=== PATIENT | male | born 1965 | race Caucasian/White ===

== ENCOUNTER 2019-04-23 17:30 | Emergency (ER) | payer MEDICARE, OTHER ==
[2019-04-23] MEDS ORDERED: HYDROmorphone 1 MG/ML Syringe IVPUSH ONE (18:10)
[2019-04-23] MEDS ORDERED: Ketorolac 30 MG/ML SDV IVPUSH ONE (18:10)
[2019-04-23] MEDS ORDERED: Ondansetron 4 MG/2 ML SDV IVPUSH ONE (18:10)
[2019-04-23] MEDS ORDERED: Cyclobenzaprine 10 MG Tab PO ONE (18:11)
--- NOTE | 2019-04-23 18:15 | EDM.PDOC ---
ED HPI GENERAL MEDICAL PROBLEM - General Chief Complaint: Back Pain or Injury Stated Complaint: BACK PAIN Time Seen by Provider: 04/23/19 17:47 Source of Information: Reports: Patient History Limitations: Reports: No Limitations - History of Present Illness INITIAL COMMENTS - FREE TEXT/NARRATIVE: 54 yo male presents to ER with lumbar back pain radiating down both legs. Hx of chronic back pain. He does take 210 hydrocodone/acetaminophen 7.5/325 every 30 days. Over the last 3 days pain has worsened. denies new trauma. no loss of bowel or bladder. Pain in legs is making it hard for him to walk. Afebrile Lower Back Pain Score (Numeric/FACES): 6 - Related Data Allergies Allergy/AdvReac Type Severity Reaction Status Date / Time gabapentin Allergy Other Verified 04/23/19 17:35 tramadol Allergy Respiratory Verified 04/23/19 17:35 Distress Home Meds: Home Meds Acetaminophen/HYDROcodone [[place] 325-7.5 MG] 1 tab PO ASDIRECTED PRN 04/23/19 [ History] Aspirin 81 mg PO DAILY 04/23/19 [History] Cyclobenzaprine HCl 10 mg PO BEDTIME 04/23/19 [History] Lisinopril 20 mg PO DAILY 04/23/19 [History] Metoprolol Succinate 50 mg PO ASDIRECTED 04/23/19 [History] Pantoprazole Sodium [Protonix] 40 mg PO DAILY 04/23/19 [History] atorvaSTATin [Lipitor] 80 mg PO DAILY 04/23/19 [History] Past Medical History HEENT History: Reports: Impaired Vision Cardiovascular History: Reports: High Cholesterol, Hypertension Gastrointestinal History: Reports: Hiatal Hernia Other Gastrointestinal History: Berrets esouphagus Genitourinary History: Reports: Prostate Disorder, UTI, Recurrent Musculoskeletal History: Reports: Arthritis, Back Pain, Chronic Other Musculoskeletal History: Low back and shoulder Cortisone shots. Nerver displacement surgery. Herniated disks, Bones spures in back. Bersa removed from left arm Neurological History: Reports: Neuropathy, Peripheral Dermatologic History: Reports: Other (See Below) Other Dermatologic History: foliculitis. Renaudes syndrome. - Past Surgical History GI Surgical History: Reports: Cholecystectomy, Other (See Below) Other GI Surgeries/Procedures: Fibroid tumors Musculoskeletal Surgical History: Reports: Carpal Tunnel Social & Family History - Tobacco Use Smoking Status *Q: Former Smoker Used Tobacco, but Quit: Yes Month/Year Tobacco Last Used: 12 - Caffeine Use Caffeine Use: Reports: None - Recreational Drug Use Recreational Drug Use: No ED ROS GENERAL - Review of Systems Review Of Systems: See Below Constitutional: Denies: Fever, Chills Respiratory: Denies: Shortness of Breath, Wheezing Cardiovascular: Denies: Chest Pain GI/Abdominal: Denies: Abdominal Pain ED EXAM,LOWER BACK PAIN/INJURY - Physical Exam Exam: See Below Exam Limited By: No Limitations General Appearance: Alert, WD/WN, Mild Distress Respiratory/Chest: No Respiratory Distress, Lungs Clear, Normal Breath Sounds, No Accessory Muscle Use, Chest Non-Tender Cardiovascular: Normal Peripheral Pulses, Regular Rate, Rhythm, No Rub Back Exam: Muscle Spasm (lumbar), Paraspinal Tenderness (bilateral but worse on right ). No: CVA Tenderness (R), CVA Tenderness (L) Course - Vital Signs Last Recorded V/S: Last Vital Signs Temp 37.0 C 04/23/19 17:39 Pulse 50 L 04/23/19 17:39 Resp 20 04/23/19 17:39 BP 167/77 H 04/23/19 17:39 Pulse Ox 95 04/23/19 17:39 - Orders/Labs/Meds Meds: Medications Discontinued Medications Generic Name Dose Route Start Last Admin Trade Name Amparo PRN Reason Stop Dose Admin Cyclobenzaprine HCl 10 mg 04/23/19 18:11 04/23/19 18:21 Flexeril PO 04/23/19 18:12 10 mg ONETIME ONE Administration Hydromorphone HCl 1 mg 04/23/19 18:10 04/23/19 18:21 Dilaudid IVPUSH 04/23/19 18:11 1 mg ONETIME ONE Administration Ketorolac Tromethamine 30 mg 04/23/19 18:10 04/23/19 18:22 Toradol IVPUSH 04/23/19 18:11 30 mg ONETIME ONE Administration Ondansetron HCl 4 mg 04/23/19 18:10 04/23/19 18:24 Zofran IVPUSH 04/23/19 18:11 4 mg ONETIME ONE Administration - Re-Assessments/Exams Free Text/Narrative Re-Assessment/Exam: 04/23/19 19:18 became comfortable after medications and is ready to go home Departure - Departure Time of Disposition: 19:15 Disposition: Home, Self-Care 01 Condition: Good Clinical Impression: Lumbar back pain - Discharge Information *PRESCRIPTION DRUG MONITORING PROGRAM REVIEWED*: Yes *COPY OF PRESCRIPTION DRUG MONITORING REPORT IN PATIENT VIJAY: Yes Instructions: Musculoskeletal Pain Referrals: PCP,None [Primary Care Provider] - Forms: ED Department Discharge Additional Instructions: follow-up as planned in [place] with your regular doctor tonight in the Emergency room you received: 1 mg IM Dilaudid (in the ambulance) , 1 mg Dilaudid IV, 30 mg Ketoralac IV, 4 mg zofran IV and 10 mg cyclobenzaprine oral do not drink alcohol tonight as it will interact with the medications I gave you and you may stop breathing
== END 2019-04-23 19:37 | disposition home or self-care (01) ==
LOC: JP.ED 17:30
DX: M54.5 Low back pain (principal); E78.00 Pure hypercholesterolemia, unspecified; I10 Essential (primary) hypertension; Z88.8 Allergy status to other drugs, medicaments and biological substances; Z88.5 Allergy status to narcotic agent; Z79.82 Long term (current) use of aspirin; Z79.899 Other long term (current) drug therapy; Z87.891 Personal history of nicotine dependence
CPT/HCPCS: 96374; 96375; 99283; A9270; J1170; J1885; J2405